=== PATIENT | male | born 1975 | race Hispanic/Latino ===

== ENCOUNTER → 2025-04-05 | Outpatient (CLI) | payer OTHER ==
--- NOTE | 2025-04-06 10:04 | HMCIMG ---
EXAM: CT examination of the temporal bone. CLINICAL HISTORY: Chronic nonsuppurative otitis media. TECHNIQUE: Thin collimated axial CT images of the temporal bones were obtained with sagittal and coronal reformatted images also submitted. CT scan done according to ALARA (As Low as Reasonably Achievable). CONTRAST USED: None. COMPARISON: None provided. FINDINGS: Left: The mastoid air cells and middle ear cavities are grossly clear. The external auditory canal is unremarkable. The tympanic membrane is grossly unremarkable. Middle ear ossicles appear intact. The inner ear structures are grossly unremarkable. The cochlear aperture is patent. The internal auditory canal is grossly unremarkable in contour and patent. The internal carotid artery and jugular bulb canals are in an anatomic location. Surrounding soft tissues are unremarkable. Right: Mild soft tissue density in the right mastoid air cells. The middle ear cavity is grossly clear. The external auditory canal is unremarkable. The tympanic membrane is grossly unremarkable. Middle ear ossicles appear intact. The inner ear structures are grossly unremarkable. The cochlear aperture is patent. The internal auditory canal is grossly unremarkable in contour and patent. The internal carotid artery and jugular bulb canals are in an anatomic location. Surrounding soft tissues are unremarkable. Cerumen in the right external ear cavity. Coronal imaging demonstrates intact scutum and tegmen tympani. IMPRESSION: 1. Mild right mastoiditis. 2. Cerumen in the right external ear cavity. /[place]
== END | disposition home or self-care (01) ==
LOC: RAH 14:10 → EEVIPCON 15:00
PROVIDERS: ATTEND Family Medicine
DX: H61.21 Impacted cerumen, right ear (principal); H70.91 Unspecified mastoiditis, right ear; H65.491 Other chronic nonsuppurative otitis media, right ear
CPT/HCPCS: 70480